=== PATIENT | female | born 1980 | race Caucasian/White ===

== ENCOUNTER → 2016-09-10 | Outpatient (CLI) | payer OTHER ==
[~2016-09-10] MED LIST: ACHYD1T PO; CELEXA; CPR500T PO; DCS100C PO; HYDR-3720 PO; HYDR1TAB8 OP; IBP800T PO; PHENTERMINE; PREN1TAB14 PO; RIZA10TA23 PO; XANAX 0.5 MG; birth control PO
--- NOTE | 2016-09-10 13:55 | Diagnostic Imaging Report ---
PROCEDURE: CT sinuses without contrast TECHNIQUE: Multiple contiguous axial images were obtained through the sinuses without the use of intravenous contrast. Coronal and sagittal reformations were then performed. INDICATION: Sinus infections. Sinus drainage. FINDINGS: The paranasal sinuses are well aerated with no generalized mucous membrane thickening or air-fluid levels. There is no mass. There is no bone expansion or bone destruction. The septum is not deviated. IMPRESSION: Normal paranasal sinuses. Dictated by: Dictated on workstation # [id number]
== END ==
LOC: RAD 13:30
PROVIDERS: ATTEND Otolaryngology Otolaryngology/Facial Plastic Surgery
DX: J32.9 Chronic sinusitis, unspecified (principal)
CPT/HCPCS: 70486

== ENCOUNTER → 2017-11-16 | Outpatient (CLI) | payer BC, OTHER | LOC: CARD 11:41 | PROVIDERS: ATTEND Nurse Practitioner Family | DX: R01.1 Cardiac murmur, unspecified (principal) | CPT/HCPCS: 93306 ==

== ENCOUNTER → 2018-02-25 | Outpatient (CLI) | payer BC, OTHER ==
--- NOTE | 2018-02-25 11:26 | Diagnostic Imaging Report ---
PROCEDURE: MRI left joint lower extremity without contrast. TECHNIQUE: Multiplanar, multisequence non contrast-enhanced MRI of the left lower extremity was accomplished. INDICATION: Right knee. There are no previous MRI examinations available for comparison. FINDINGS: There is no abnormal signal arising from the osseous structures to suggest bone edema or fracture. The talar dome is smooth and there is no sign of osteochondritis dissecans. The ankle mortise does not seem to be widened. There is a prominent os trigonum. There is also slightly increased signal in the soft tissues posterior to the os trigonum on the STIR sagittal series. This increased signal does suggest mild edema/inflammation. The possibility of os trigonum syndrome should be considered. On the STIR sagittal series, there is slightly increased signal within the substance of the Achilles tendon. This could be a sequela of prior trauma. For the most part, however, the tendon appears to be intact. The major ligaments and tendons are otherwise intact. There is no soft tissue mass or abscess visualized. IMPRESSION: 1. There is no evidence for an acute bony abnormality. 2. The os trigonum is prominent and there is mild edema/inflammation the soft tissues posterior to the os trigonum. The possibility of the os trigonum syndrome should be considered. 3. This area of altered signal within the Achilles tendon may be a sequela of prior trauma. For the most part, the Achilles tendon appears to be intact. The other major ligaments and tendons are unremarkable for an acute injury. Dictated by: Dictated on workstation # [id number]
== END ==
LOC: RAD 09:29
PROVIDERS: ATTEND Orthopaedic Surgery
DX: M76.62 Achilles tendinitis, left leg (principal)
CPT/HCPCS: 73721

== ENCOUNTER → 2018-04-15 | Outpatient (CLI) | payer BC ==
--- NOTE | 2018-04-15 10:48 | Diagnostic Imaging Report ---
PROCEDURE: US left lower extremity venous. TECHNIQUE: Multiple Real-time grayscale images were obtained over the left lower extremity in various projections. Additional duplex Doppler and color Doppler images were also obtained. INDICATION: Left leg pain and swelling. Patient is status post Achilles surgery 3 weeks ago. FINDINGS: There is no evidence of left lower extremity DVT. The left lower extremity deep venous system shows normal compressibility with normal response to augmentation and Valsalva. No fluid collection or mass is seen. IMPRESSION: No evidence of left lower extremity DVT. Dictated by: Dictated on workstation # [id number]
== END ==
LOC: RAD 08:41
PROVIDERS: ATTEND Nurse Practitioner
DX: M79.89 Other specified soft tissue disorders (principal); Z98.890 Other specified postprocedural states

== ENCOUNTER → 2019-03-30 | Outpatient (CLI) | payer BC ==
--- NOTE | 2019-03-30 14:11 | Diagnostic Imaging Report ---
PROCEDURE: US Non-ob pelvis comp/trans. TECHNIQUE: Multiple realtime grayscale images were obtained of the pelvis in various projections endovaginally. Transabdominal imaging was also performed. INDICATION: Dysfunctional uterine bleeding and IUD surveillance. FINDINGS: The uterus measures 8.8 x 6.0 x 4.1 cm. The IUD appears to be appropriately centered within the endometrial canal. The endometrium is 10 mm in thickness. No myometrial mass is seen. There is some fluid within the endocervical canal. There is a 1 cm cervical nabothian cyst. Right ovary measures 3.6 x 2.6 x 2.6 cm and the left ovary measures 2.9 x 2.4 x 1.9 cm. The right ovary contains a 2.3 x 2.5 x 2.3 cm simple appearing cyst. There is also a 1.9 x 1.8 x 1.4 cm cyst. Right ovary does show blood flow. Left ovary contains a 1.5 x 1.3 x 1.9 cm cyst. There is blood flow to the left ovary. No free fluid is seen. IMPRESSION: 1. IUD appears to be appropriately centered within the endometrial canal. 2. Bilateral ovarian cysts. Dictated by: Dictated on workstation # [id number]
== END ==
LOC: RAD 12:32
PROVIDERS: ATTEND Nurse Practitioner
DX: Z30.431 Encounter for routine checking of intrauterine contraceptive device (principal); N83.201 Unspecified ovarian cyst, right side; N83.202 Unspecified ovarian cyst, left side
CPT/HCPCS: 76830; 76856

== ENCOUNTER → 2020-03-08 | Outpatient (CLI) | payer BC ==
--- NOTE | 2020-03-08 16:05 | Diagnostic Imaging Report ---
INDICATION: Bilateral hip pain. COMPARISON: None available. TECHNIQUE: AP pelvis with AP and frog-leg lateral views of both hips for a total 5 views. FINDINGS: Nonuniform joint space narrowing involving both hips. Osteophytes are noted along the femoral head neck junction. Diminished offset of the femoral head neck junction on both sides. Additionally, there appears to be a degree of acetabular over coverage. SI joints are normal. Mild degenerative changes of the symphysis pubis. IUD is positioned in the expected region of the uterus. IMPRESSION: Degenerative arthritis of both hips is accelerated for patient's age. 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 Dictated by: Dictated on workstation # [id number]
== END ==
LOC: RAD 15:29
PROVIDERS: ATTEND Nurse Practitioner Family
DX: M16.0 Bilateral primary osteoarthritis of hip (principal); Z97.5 Presence of (intrauterine) contraceptive device
CPT/HCPCS: 73523

== ENCOUNTER 2020-11-20 05:26 | Emergency (ER) | payer BC ==
[~2020-11-20] VITALS: Ht 170.2 cm; Wt 89.0 kg
[2020-11-20] MEDS ORDERED: NS IV 500 ML 500 ML IV ONE (05:45)
--- NOTE | 2020-11-20 05:48 | ED Abdominal Pain ---
General Chief Complaint: Abdominal/GI Problems Stated Complaint: LEFT LOWER ABD PAIN Source of Information: Patient Exam Limitations: No Limitations (BROOKE CHACON) History of Present Illness Date Seen by Provider: Nov 20, 2020 Time Seen by Provider: 05:33 Initial Comments Patient to the ER by private conveyance from home with chief complaint she was awoken this morning with significant left lower quadrant abdominal pain that is now 7 out of 10. She did not take anything for it. No fevers chills nausea vomiting diarrhea. She did have some constipation with a hard stool yesterday. She has not taken anything for the pain nor has he taken any laxatives. No dysuria discharge. She has a history of ovarian cysts, PCOS and history of cholecystectomy and C-sections. She is due to start her period in about 3 days. She has had endoscopy in the past and denies history of diverticulosis. History of kidney stones. (BROOKE CHACON) Allergies and Home Medications Allergies Coded Allergies: Penicillins (Verified Allergy, Unknown, 10/14/07) Home Medications Docusate Sodium 100 Mg Capsule, 100 MG PO BID, (Reported) Hydrocodone Bit/Acetaminophen 1 Tab Tablet, 1-2 TAB PO Q3H PRN, (Reported) Ibuprofen 800 Mg Tab, 800 MG PO Q6H PRN, (Reported) Vits W-Ca,Fe,Fa(<1MG) 1 Each Tablet, 1 EACH PO DAILY, (Reported) Patient Home Medication List Home Medication List Reviewed: Yes (BROOKE CHACON) Review of Systems Review of Systems Constitutional: No chills, No fever EENTM: No Blurred Vision, No Double Vision Respiratory: Denies Cough, Denies Shortness of Air Cardiovascular: Denies Chest Pain, Denies Lightheadedness Gastrointestinal: See HPI, Abdominal Pain, Constipated; Denies Diarrhea, Denies Nausea Genitourinary: Denies Burning, Denies Discharge Musculoskeletal: No back pain, No joint pain Skin: No change in color, No dryness (BROOKE CHACON) All Other Systems Reviewed Negative Unless Noted: Yes (BROOKE CHACON) Past Frtwzic-Cxpdsq-Emyggi Hx Patient Social History Alcohol Use: Denies Use Drug of Choice: Denies Smoking Status: Never a Smoker (BROOKE CHACON) Immunizations Up To Date Tetanus Booster (TDap): Less than 5yrs Date of Influenza Vaccine: Mar 07, 2012 (BROOKE CHACON) Past Medical History Sexually Transmitted Disease: Yes (HSV II, 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 oz. kg; BMI Method: General Appearance: WD/WN, mild distress HEENT: PERRL/EOMI, pharynx normal Neck: full range of motion, normal inspection Respiratory: no respiratory distress, no accessory muscle use Cardiovascular: normal peripheral pulses, regular rate, rhythm Gastrointestinal: normal bowel sounds, soft, no organomegaly, tenderness (Left lower quadrant only with negative for Rovsing sign, Faustin sign, psoas sign or mesenteric signs) Extremities: normal range of motion, normal inspection, normal capillary refill (BROOKE CHACON) Progress/Results/Core Measures Results/Orders Lab Results Laboratory Tests Test 11/20/20 05:41 11/20/20 05:48 Range/Units Urine Color YELLOW Urine Clarity CLEAR Urine pH 6.0 5-9 Urine Specific [place] 1.015 L 1.016-1.022 Urine Protein NEGATIVE NEGATIVE Urine Glucose (UA) NEGATIVE NEGATIVE Urine Ketones NEGATIVE NEGATIVE Urine Nitrite NEGATIVE NEGATIVE Urine Bilirubin NEGATIVE NEGATIVE Urine Urobilinogen 0.2 < = 1.0 MG/DL Urine Leukocyte Esterase NEGATIVE NEGATIVE Urine RBC (Auto) NEGATIVE NEGATIVE Urine RBC NONE /HPF Urine WBC NONE /HPF Urine Squamous Epithelial Cells 2-5 /HPF Urine Crystals PRESENT H /LPF Urine Amorphous Sediment FEW JAM URATES H /LPF Urine Bacteria NEGATIVE /HPF Urine Casts NONE /LPF Urine Mucus NEGATIVE /LPF Urine Culture Indicated NO White Blood Count 17.0 H 4.3-11.0 10^3/uL Red Blood Count 4.97 3.80-5.11 10^6/uL Hemoglobin 14.1 11.5-16.0 g/dL Hematocrit 45 35-52 % Mean Corpuscular Volume 90 80-99 fL Mean Corpuscular Hemoglobin 28 25-34 pg Mean Corpuscular Hemoglobin Concent 32 32-36 g/dL Red Cell Distribution Width 14.3 10.0-14.5 % Platelet Count 235 130-400 10^3/uL Mean Platelet Volume 10.5 9.0-12.2 fL Immature Granulocyte % (Auto) 1 % Neutrophils (%) (Auto) 79 H 42-75 % Lymphocytes (%) (Auto) 11 L 12-44 % Monocytes (%) (Auto) 9 0-12 % Eosinophils (%) (Auto) 1 0-10 % Basophils (%) (Auto) 0 0-10 % Neutrophils # (Auto) 13.4 H 1.8-7.8 10^3/uL Lymphocytes # (Auto) 1.8 1.0-4.0 10^3/uL Monocytes # (Auto) 1.5 H 0.0-1.0 10^3/uL Eosinophils # (Auto) 0.1 0.0-0.3 10^3/uL Basophils # (Auto) 0.0 0.0-0.1 10^3/uL Immature Granulocyte # (Auto) 0.1 0.0-0.1 10^3/uL Neutrophils % (Manual) 84 % Lymphocytes % (Manual) 9 % Monocytes % (Manual) 4 % Basophils % (Manual) 1 % Reactive Lymphocytes 2 % Blood Morphology Comment NORMAL Sodium Level 137 135-145 MMOL/L Potassium Level 4.3 3.6-5.0 MMOL/L Chloride Level 107 98-107 MMOL/L Carbon Dioxide Level 18 L 21-32 MMOL/L Anion Gap 12 5-14 MMOL/L Blood Urea Nitrogen 8 7-18 MG/DL Creatinine 0.90 0.60-1.30 MG/DL Estimat Glomerular Filtration Rate > 60 BUN/Creatinine Ratio 9 Glucose Level 91 70-105 MG/DL Calcium Level 9.2 8.5-10.1 MG/DL Corrected Calcium 9.0 8.5-10.1 MG/DL Total Bilirubin 0.8 0.1-1.0 MG/DL Aspartate Amino Transf (AST/SGOT) 14 5-34 U/L Alanine Aminotransferase (ALT/SGPT) 9 0-55 U/L Alkaline Phosphatase 64 40-136 U/L C-Reactive Protein High Sensitivity 1.61 H 0.00-0.50 MG/DL Total Protein 7.4 6.4-8.2 GM/DL Albumin 4.3 3.2-4.5 GM/DL (KASH GILLILAND MD) My Orders Orders - KASH GILLILAND MD Ct Abdomen/Pelvis W (11/20/20 06:20) Ketorolac Injection (Toradol Injection) (11/20/20 06:26) Iohexol Injection (Omnipaque 350 Mg/Ml 1 (11/20/20 07:00) Ns (Ivpb) (Sodium Chloride 0.9% Ivpb Bag (11/20/20 07:00) (KASH GILLILAND MD) Medications Given in ED Current Medications Medications Dose Ordered Sig/Tino Route Start Time Stop Time Status Last Admin Dose Admin Iohexol 100 ml ONCE ONCE IV 11/20/20 07:00 11/20/20 07:01 DC 11/20/20 06:56 100 ML Sodium Chloride 80 ml ONCE ONCE IV 11/20/20 07:00 11/20/20 07:01 DC 11/20/20 06:56 80 ML Sodium Chloride 500 ml @ 0 mls/hr Q0M ONCE IV 11/20/20 05:45 11/20/20 05:46 DC 11/20/20 05:51 500 MLS/HR (KASH GILLILAND MD) Vital Signs/I&O 11/20/20 05:36 Temp 36.7 Pulse 89 Resp 18 B/P (MAP) 135/84 (101) O2 Delivery Room Air (KASH GILLILAND MD) Progress Progress Note : Time: 05:45 Progress Note Pleasant, stoic young female with left lower quadrant abdominal pain. Differential includes ovarian, kidney stone, constipation, less likely diverticulitis or appendicitis. Vital signs are largely a septic except for heart rate in the low 90s. Plan to get some labs, urinalysis. Offered her some Toradol which she declined stating she does not like to take medicines for pain. (BROOKE CHACON) Progress Note : Progress Note 0625: I have assumed care of the patient at 0 600. I have reexamined the patient and she still has mild to moderate left lower quadrant abdominal pain. Labs and urine reviewed. We will go ahead and get CT scan of the abdomen and pelvis with contrast given her elevated white count. She has no blood in her urine indicate kidney stones. I did offer pain medicine and she ultimately has excepted Toradol which was ordered at 30 mg IV. Monitor patient. 0735: CT does show diverticulitis. She is doing a little better now. We will initiate outpatient treatment with Cipro and Flagyl. She will also initiate MiraLAX at the generic. Discharged home with return precautions. Patient verbalized understanding instructions and agreement with plan. (KASH GILLILAND MD) Diagnostic Imaging Diagonstic Imaging: CT Plain Films/CT/US/NM/MRI: abdomen, pelvis Comments [facility]. [place], [place] NAME: YESI GARCIA [facility] REC#: [id number] PT STATUS: REG ER : 1980 PHYSICIAN: KASH GILLILAND MD ADMIT DATE: 11/20/20/ER Draft Date of Exam:11/20/20 CT ABDOMEN/PELVIS W EXAMINATION: CT abdomen and pelvis with intravenous contrast. TECHNIQUE: Multiple contiguous axial images were obtained through the abdomen and pelvis after the uneventful administration of intravenous contrast. All CT scans use one or more of the following dose optimizing techniques: automated exposure control, MA and/or KvP adjustment based on patient size and exam type or iterative reconstruction. HISTORY: LLQ abd pain COMPARISON: CT abdomen and pelvis 10/07/2010 FINDINGS: Lung bases: The lung bases are clear. Solid organs: The liver is normal without focal lesion. The gallbladder is surgically absent. There is no biliary ductal dilation. Pancreas is normal. Spleen is normal. Adrenal glands are normal. The kidneys are normal without hydronephrosis. Bowel: The stomach and small bowel are normal without obstruction. There is wall thickening and an inflamed diverticulum within the sigmoid colon (series 2 image 62). There is significant surrounding inflammatory stranding. There is scattered colonic diverticula greatest within sigmoid colon. The appendix is normal. Peritoneum: No loculated fluid collection or intra-abdominal free air. There is trace free fluid in the pelvis. No suspicious lymphadenopathy. Vasculature: Normal without aneurysm. Musculoskeletal: No suspicious osseous lesion or compression fracture. Pelvis: An IUD is present within the uterine fundus. No adnexal mass. The urinary bladder is normal. IMPRESSION: 1. Findings suggestive of acute sigmoid diverticulitis without abscess or free air. Dictated on workstation # [id number] Dict: 11/20/2007 Trans: 11/20/20 0726 [id number] Interpreted by: ROE WEST DO Electronically signed by: (KASH GILLILAND MD) Transfer of Care Time: 06:00 Care transferred to: Dr. Gilliland (BROOKE CHACON) Departure Impression Primary Impression: Sigmoid diverticulitis Disposition: HOME, SELF-CARE Condition: Stable Departure-Patient Inst. Decision time for Depature: 07:40 (KASH GILLILAND MD) Referrals: ROHIT LOPES MD (PCP/Family) Primary Care Physician Patient Instructions: Diverticulitis (DC) Add. Discharge Instructions: All discharge instructions reviewed with patient and/or family. Voiced understanding. You may take Tylenol and/or ibuprofen as needed for pain per package directions. Drink plenty of fluids. You may take MiraLAX or the generic 1 capful daily to keep stools soft. You may increase or decrease the dose to keep stools in n ormal range. Take medications as directed. Light diet for the next several days and then advance as tolerated. Follow-up with your doctor within the next week for recheck and further evaluation. Return for worse pain, fever, vomiting, weakness, breathing problems, blood in your stool or other concerns as needed. Scripts Metronidazole (Metronidazole) 500 Mg Tablet 500 MG PO BID, #14 TAB 0 Refills Prov: KASH GILLILAND MD 11/20/20 Ciprofloxacin HCl (Ciprofloxacin HCl) 500 Mg Tablet 500 MG PO BID, #14 TAB Prov: KASH GILLILAND MD 11/20/20 BROOKE CHACON Nov 20, 2020 05:48 KASH GILLILAND MD Nov 20, 2020 06:29
[2020-11-20 05:55] LABS: BILIRUBIN,URINE NEGATIVE (NEGATIVE); CLARITY,URINE CLEAR; COLOR,URINE YELLOW; GLUCOSE, URINE (UA) NEGATIVE (NEGATIVE); KETONES,URINE NEGATIVE (NEGATIVE); LEUKOCYTE ESTERASE ,URINE NEGATIVE (NEGATIVE); NITRITE,URINE NEGATIVE (NEGATIVE); PROTEIN,URINE NEGATIVE (NEGATIVE)
[2020-11-20 05:58] LABS: BASOPHILS % (AUTO) 0 % (0-10); EOSINOPHILS # (AUTO) 0.1 10^3/uL (0.0-0.3); EOSINOPHILS % (AUTO) 1 % (0-10); HEMATOCRIT 45 % (35-52); HEMOGLOBIN 14.1 g/dL (11.5-16.0); LYMPHOCYTES # (AUTO) 1.8 10^3/uL (1.0-4.0); LYMPHOCYTES % (AUTO) 11 % (12-44); MEAN CORPUSCULAR HEMOGLOBIN 28 pg (25-34); MEAN CORPUSCULAR HGB CONC 32 g/dL (32-36); MEAN CORPUSCULAR VOLUME 90 fL (80-99); MEAN PLATELET VOLUME 10.5 fL (9.0-12.2); MONOCYTES # (AUTO) 1.5 10^3/uL (0.0-1.0); MONOCYTES % (AUTO) 9 % (0-12); NEUTROPHILS # (AUTO) 13.4 10^3/uL (1.8-7.8); NEUTROPHILS % (AUTO) 79 % (42-75); PLATELET COUNT 235 10^3/uL (130-400)
[2020-11-20 06:05] LABS: AMORPHOUS SEDIMENT,UR FEW AMOR URATES /LPF; BACTERIA,URINE NEGATIVE /HPF
[2020-11-20 06:08] LABS: ALBUMIN 4.3 GM/DL (3.2-4.5); CHLORIDE 107 MMOL/L (98-107); POTASSIUM 4.3 MMOL/L (3.6-5.0); SODIUM 137 MMOL/L (135-145)
[2020-11-20 06:09] LABS: CALCIUM 9.2 MG/DL (8.5-10.1)
[2020-11-20 06:11] LABS: GLUCOSE 91 MG/DL (70-105); TOTAL PROTEIN 7.4 GM/DL (6.4-8.2)
[2020-11-20 06:12] LABS: CARBON DIOXIDE 18 MMOL/L (21-32)
[2020-11-20 06:13] LABS: BILIRUBIN,TOTAL 0.8 MG/DL (0.1-1.0)
[2020-11-20 06:14] LABS: ALKALINE PHOSPHATASE 64 U/L (40-136); BASOPHILS % (MANUAL) 1 %; GFR ESTIMATED > 60; LYMPHOCYTES % (MANUAL) 9 %; MONOCYTES % (MANUAL) 4 %; NEUTROPHILS % (MANUAL) 84 %; REACTIVE LYMPHOCYTES 2 %
[2020-11-20 06:15] LABS: BUN/CREATININE RATIO 9; RBC MORPH NORMAL
[2020-11-20 06:17] LABS: ALANINE AMINOTRANSFERASE 9 U/L (0-55)
[2020-11-20] MEDS ORDERED: KETOROLAC 30 MG/ML VIAL IVP STA (06:26)
[2020-11-20] MEDS ORDERED: NS 100 ML (IVPB) BAG IV ONE (07:00)
[2020-11-20] MEDS ORDERED: IOHEXOL 350 MG/ML 100 ML (OMNIPAQUE 350) VIAL IV ONE (07:00)
--- NOTE | 2020-11-20 07:27 | Diagnostic Imaging Report ---
EXAMINATION: CT abdomen and pelvis with intravenous contrast. TECHNIQUE: Multiple contiguous axial images were obtained through the abdomen and pelvis after the uneventful administration of intravenous contrast. All CT scans use one or more of the following dose optimizing techniques: automated exposure control, MA and/or KvP adjustment based on patient size and exam type or iterative reconstruction. HISTORY: LLQ abd pain COMPARISON: CT abdomen and pelvis 10/07/2010 FINDINGS: Lung bases: The lung bases are clear. Solid organs: The liver is normal without focal lesion. The gallbladder is surgically absent. There is no biliary ductal dilation. Pancreas is normal. Spleen is normal. Adrenal glands are normal. The kidneys are normal without hydronephrosis. Bowel: The stomach and small bowel are normal without obstruction. There is wall thickening and an inflamed diverticulum within the sigmoid colon (series 2 image 62). There is significant surrounding inflammatory stranding. There is scattered colonic diverticula greatest within sigmoid colon. The appendix is normal. Peritoneum: No loculated fluid collection or intra-abdominal free air. There is trace free fluid in the pelvis. No suspicious lymphadenopathy. Vasculature: Normal without aneurysm. Musculoskeletal: No suspicious osseous lesion or compression fracture. Pelvis: An IUD is present within the uterine fundus. No adnexal mass. The urinary bladder is normal. IMPRESSION: 1. Findings suggestive of acute sigmoid diverticulitis without abscess or free air. Dictated by: Dictated on workstation # [id number]
[2020-11-20] MEDS ORDERED: CIPR500T5 PO (07:42)
[2020-11-20] MEDS ORDERED: METR-145 PO (07:42)
[2020-11-20 07:49] VITALS: BP 135/84
== END 2020-11-20 07:48 | disposition home or self-care (01) ==
LOC: EDUNIT# 05:26 → ER 05:30
DX: K57.32 Diverticulitis of large intestine without perforation or abscess without bleeding (principal); Z90.49 Acquired absence of other specified parts of digestive tract
CPT/HCPCS: 36415; 74177; 80053; 81000; 84703; 85007; 85027; 86141

== ENCOUNTER → 2021-01-03 | Outpatient (CLI) | payer BC ==
[~2021-01-03] MED LIST changes: +CIPR500T5 PO; +METR-145 PO
--- NOTE | 2021-01-03 14:01 | Diagnostic Imaging Report ---
Indication: Routine screening No prior mammograms are available for comparison. This a baseline study. 2-D and 3-D bilateral screening mammography was performed with CAD. Both breasts are heterogeneously dense, limiting the sensitivity of mammography. There is a circumscribed nodule in the upper and slightly outer left breast approximately 7 cm from the nipple. No other masses are seen. No malignant-appearing microcalcifications are seen. Axillae are unremarkable. IMPRESSION: BI-RADS 0 Circumscribed nodule upper and slightly outer left breast at approximately the 1:00 location, 7 cm from the nipple. Further evaluation with ultrasound is recommended. ACR BI-RADS Category 0: Incomplete. (Needs additional imaging evaluation). Result letter will be mailed to the patient. Note: At least 10% of breast cancer is not imaged by mammography. Dictated by: Dictated on workstation # [id number]
== END ==
LOC: RAD 11:15
PROVIDERS: ATTEND Surgery
DX: Z12.31 Encounter for screening mammogram for malignant neoplasm of breast (principal); N63.21 Unspecified lump in the left breast, upper outer quadrant
CPT/HCPCS: 77063; 77067

== ENCOUNTER → 2021-01-13 | Outpatient (CLI) | payer BC ==
--- NOTE | 2021-01-13 14:25 | Diagnostic Imaging Report ---
INDICATION: Abnormal mammogram. COMPARISON: Prior mammogram from 01/03/2021. FINDINGS: Sonographic interrogation of the upper outer left breast was performed. There is a circumscribed hypoechoic nodule at the 1 o'clock location 5 cm from the nipple measuring 6 mm x 6 mm x 3 mm. This shows posterior acoustic enhancement and has the appearance of a fibroadenoma. This likely accounts for the mammographic density. No other sonographic abnormalities are identified. IMPRESSION: Probable subcentimeter fibroadenoma at the 1 o'clock location of the left breast 5 cm from the nipple and accounting for the mammographic density. Even so, a followup left breast ultrasound in 6 months is recommended to show continued stability. ACR BI-RADS Category 3: Probably benign findings. Dictated by: Dictated on workstation # [id number]
== END ==
LOC: RAD 13:15
PROVIDERS: ATTEND Surgery
DX: R92.8 Other abnormal and inconclusive findings on diagnostic imaging of breast (principal)
CPT/HCPCS: 76642